=== PATIENT | female | born 2005 ===

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

== ENCOUNTER 2024-11-18 23:40 | Emergency (ER) | payer OTHER ==
[~2024-11-18] VITALS: Ht 165.1 cm; Wt 103.7 kg
[~2024-11-18 23:40] MED LIST: DIPH25CA66 PO; PRED20TA2 PO
[2024-11-19] MEDS ORDERED: AZIT-43 PO (02:04)
[2024-11-19] MEDS ORDERED: ACET500T58 PO (02:04)
--- NOTE | 2024-11-19 02:04 | ED.PDOC ---
History of Present Illness HPI Comments 19-year-old female presents to ER with complaints of cough x1 day. Patient reports she has been experiencing productive cough with green phlegm, sore throat, congestion and chills x1 day. She rates her current sore throat pain an 8/10. Denies use of medications for current symptoms and presents to ER ambulatory on arrival, with steady gait, in no distress with vitals stable. Denies fever, night sweats, chest pain, hemoptysis, headache, dizziness or any further symptoms/complaints Chief Complaint: Flu like Time Seen by MD: 00:01 Primary Care Provider: UNKNOWN Reviewed Notes: Nurses Notes, Medications, Allergies Information Source: Patient Mode of Arrival: Ambulatory Past Medical History PAST MEDICAL HISTORY: Denies Surgical History: Denies all surgeries [employer]CHIT[employer] History: No Pertinent [employer]CHIT[employer] History Family History Family History: Unknown Social History Smoker: Non-Smoker Alcohol: Denies ETOH Use Drugs: Denies Drug Use Lives In: Home Constitutional: See HPI EENTM: See HPI Respiratory: See HPI Cardiovascular: No Symptoms Reported Gastrointestinal: No Symptoms Reported Genitourinary: No Symptoms Reported Neurological: No Symptoms Reported Musculoskeletal: No Symptoms Reported Integumentary: No Symptoms Reported Allergic/Immunocompromised: others (DENIES) Hematologic/Lymphatic: No Symptoms Reported Endocrine: No Symptoms Reported Psychiatric: No symptoms Reported Physical Exam General Appearance: No Apparent Distress, Obese HEENT: Normal ENT Inspection, PERRL/EOMI, Pharynx Normal, TMs Normal Neck: Full Range of Motion, Non-Tender, Normal Respiratory: Chest Non-Tender, Lungs Clear, No Accessory Muscle Use, No Respiratory Distress, Normal Breath Sounds Cardiovascular: No Murmur, No Gallop, Regular Rate/Rhythm Breast Exam: Deferred Gastrointestinal: NOT DONE Genitalia: Deferred Pelvic: Deferred Rectal: Deferred Extremities: Normal capillary refill, Normal range of motion Neurologic: Alert, strategic planning director II-XII nml as Tested, No Motor Deficits, Normal Affect, Normal Mood, No Sensory Deficits Cerebellar Function: Normal Reflexes: Normal Skin: Dry, Normal Color, Warm Peripheral Pulses: 2+ Radial (R), 2+ Radial (L), 2+ Brachial (R), 2+ Brachial (L) Lymphatic: No Adenopathy Was a procedure done? Was a procedure done?: No Sedation Sedation?: No Fever Differential Dx Differential Diagnosis: Pneumonia, Sepsis, Pharyngitis X-Ray, Labs, Meds, VS Vital Signs Date Time Temp Pulse Resp B/P (MAP) Pulse Ox O2 Delivery O2 Flow Rate FiO2 11/18/24 23:40 98.0 91 18 129/74 97 98.0 Patient well appearing, vitals stable and in no distress during ER visit/prior to discharge Advised to drink plenty of fluids Advised to follow up with PCP in 1-2 days Patient verbalized understanding and agreeable with current plan of care Advised to return to ER immediately if symptoms worsen Time of 1ST Reevaluation: 01:40 Reevaluation 1ST: N/A Patient Education/Counseling: Diagnosis, Treatment, Prognosis, Need For Follow Up Family Education/Counseling: No Family Present SEPSIS Sepsis Screen Date sepsis recognized/suspect: Nov 18, 2024 Time Sepsis recognized/suspect: 2339 Recent Procedure: No On Antibiotic Therapy: No Respiratory Rate >20: No Heart Rate >90: No Temp<36 C (96.8 F) or >38.3 C: No SBP <90 or MAP <65 mmHG: No New Acute Mental Status Change: No Is the patient on CPAP, BIPAP,: No Vital Signs Date Time Temp Pulse Resp B/P (MAP) Pulse Ox O2 Delivery O2 Flow Rate FiO2 11/18/24 23:40 98.0 91 18 129/74 97 98.0 Departure 1 Departure Time of Disposition: :02 Impression: Primary Impression: Upper respiratory infection Qualified Codes: J06.9 - Acute upper respiratory infection, unspecified Disposition: HOME / SELF CARE / HOMELESS Condition: Stable e-Prescriptions Azithromycin (Azithromycin) 250 Mg Tab 250 MG PO DAILY MDD 500 for 5 Days, #6 TAB 0 Refills 2 TABLETS ORALLY ON DAY ONE, THEN 1 TABLET ORALLY DAILY FOR 4 DAYS Prov: ELOY COLON 11/19/24 Prednisone (Prednisone) 20 Mg Tab 20 MG PO BID for 5 Days, #10 TAB 0 Refills Prov: ELOY COLON 11/19/24 Acetaminophen (Acetaminophen) 500 Mg Tab 500 MG PO Q4HPRN, #30 TAB 0 Refills Prov: ELOY COLON 11/19/24 Discharged With: Self Critical Care Note Critical Care Time?: No Stability Stability form required: No Heart Score Heart Score: Heart Score Response (Comments) Value History N/A 0 EKG N/A 0 Age N/A 0 Risk Factors N/A 0 Troponin N/A 0 Total 0 ELOY COLON Nov 19, 2024 02:04
[2024-11-19 02:14] VITALS: BP 132/76; PULSE 94; RESP 20; TEMP 98.3; O2SAT 98
== END 2024-11-19 02:16 | disposition home or self-care (01) ==
LOC: ER 23:50
DX: J06.9 Acute upper respiratory infection, unspecified (principal)